=== PATIENT | female | born 1980 | race Caucasian/White ===

== ENCOUNTER 2020-12-28 09:20 | Emergency (ER) | payer BC ==
[~2020-12-28] VITALS: Ht 162.6 cm; Wt 70.5 kg
[2020-12-28 09:32] VITALS: BP 115/80
[2020-12-28] MEDS ORDERED: GUAI400T92 PO (10:58)
[2020-12-28] MEDS ORDERED: BENZ-16 PO (10:58)
== END 2020-12-28 11:17 | disposition home or self-care (01) ==
LOC: ER 09:21
DX: J22 Unspecified acute lower respiratory infection (principal); Z20.822 Contact with and (suspected) exposure to COVID-19; Z79.899 Other long term (current) drug therapy
CPT/HCPCS: 71045; 87635; 99284; C9803